=== PATIENT | female | born 1980 | race Caucasian/White ===

== ENCOUNTER 2024-07-21 06:52 | Emergency (ER) | payer BC, SELFPAY ==
[2024-07-21 06:56] VITALS: BP 139/85
--- NOTE | 2024-07-21 07:54 | ED.GENMED ---
History of Present Illness
General
Chief Complaint: Head Injury
Source: patient
Exam Limitations: none
Time Seen by Provider: 07/21/24 07:28
Nursing documentation reviewed up to this point in time: agreed with
History of Present Illness
History of Present Illness:
Patient is a 43-year-old female who reports around 6 AM she was bent over and stood up hitting the back of her head on a TV sustaining laceration. She denies loss of consciousness. She does have a little headache and her vision with distance feels
a little off however she denies any vomiting. She is on blood thinners. She drove her self to the hospital. She is unsure of last tetanus.
Past History
Past History
ED Past Medical History: Hypothyroidism; Negative Asthma, HTN, Hypercholesterolemia or NIDDM
ED Past Surgical History: Appendectomy and Cholecystectomy
Social History
Tobacco: Non-smoker
Alcohol: None
Personal: (Same sex)
Living: with family
Review of Systems
Review of Systems
Allergies reviewed?: Yes
All Other Systems: ROS reviewed and negative except as documented in HPI and ROS
Constitutional: Reports no symptoms; Denies fever, fatigue or chills
Respiratory: Reports no symptoms
Cardiac: Reports no symptoms
ABD/GI: Denies nausea or vomiting
Musculoskeletal: Reports no symptoms
Skin: Reports other (scalp laceration)
Neurological: Reports headache and other ( no loc)
Psychiatric: Reports no symptoms
Phy Exam
General Physical Exam
General Presentation: no apparent distress
General age: appears stated age
General Skin: warm and dry
General Habitus: normal
General Mental: alert
General Hydration: appears well hydrated
Neurological Exam
Neurological Exam: alert
Musculoskeletal Exam
Musculoskeletal Exam: full ROM and other (No bony cervical spine midline tenderness, small abrasion/mild hematoma to posterior head)
Skin Exam
Skin Exam: normal color and warm/dry
Psychiatric Exam
Psychiatric Exam: normal mood/affect
Course
Orders/Labs/Results
Orders:
Orders
07/21/24 07:55
Tetanus/Diphth/Acelpertussis [Adacel] 0.5 ml IM .ONCE ONE
Vital Signs
Initial and Last Documented VS:
Initial Vital Signs
Temp Pulse Resp BP Pulse Ox
98 F 95 16 139/85 100
07/21/24 06:56 07/21/24 06:56 07/21/24 06:56 07/21/24 06:56 07/21/24 06:56
Last Documented Vital Signs
Temp Pulse Resp BP Pulse Ox
98 F 95 16 139/85 100
07/21/24 06:56 07/21/24 06:56 07/21/24 06:56 07/21/24 06:56 07/21/24 06:56
MDM/Problems Addressed
Differential Diagnosis Includes:
Not limited to head injury, abrasion, concussion
MDM/Problems Addressed:
Patient is a 43-year-old female who bent over and when she stood up hit the back of her head on a TV. She complains of laceration however on exam there is a small abrasion mild swelling to the area. This does not need repair. She complains of
mild headache her vision feels a little off however she is in no acute distress and looks well. Head injury possible mild concussion however with mechanism normal neurologic exam and well appearance of patient will hold off on any imaging. I had a
discussion about this with patient and she is agreeable and feels comfortable without imaging. She was reviewed on head injury instructions and when to return to the ER for. She has no acute distress and stable for discharge home. She was updated
on tetanus.
*Critical Care Note
Total Time (30-74mins, 75-104mins- exclusive of procedures): Not Applicable
ED Attending Note
-
Portions of this chart may have been created with voice recognition software.� Occasional wrong word or��sound alike� substitutions may have occurred due to the inherent limitations of voice recognition software.
Discharge Plan
Departure
Patient Disposition: Home (Routine Discharge)
Date of Disposition: 07/21/24
Time of Disposition: 09:03
Patient with high blood pressure during this ER visit?: Yes
Condition: Fair
Covid-19: Not Applicable
Discharge Problem:
Head injury, Scalp abrasion
Instructions: Head Injury in Adults (DC), Abrasions ED
Prescriptions:
No Action
levothyroxine 25 MCG tablet
25 mcg PO DAILY
Referrals:
Phong Guerin DO [Family Provider] -
Activity Restrictions/Additional Instructions:
Ice affected area for the next 24 hours 20 days at a time several times a day. Wash abrasion with soap and water pat dry and apply small layer of antibiotic to the area.
You may take Tylenol or ibuprofen for pain. Return if any worsening of symptoms of worsening headache nausea vomiting difficulty walking balance issues or any further concerns.
Interventions
Interventions:
*Risk Screen - Suicide Last Done: 07/21/24 06:56
*General Assessment Last Done: 07/21/24 06:56
*Neglect/Abuse Screening Last Done: 07/21/24 06:56
ED- Fall Risk Assessment Last Done: 07/21/24 07:17
*ED COVID-19 Vaccine History Last Done: 07/21/24 07:17
ED- Neurological Assessment Last Done: 07/21/24 07:17
ED-Skin Assessment Last Done: 07/21/24 07:17
Discharge Date and Time
Print Language: ICELANDIC
[2024-07-21] MEDS: ADACEL 0.5 ML IM (08:09)
[2024-07-21 08:40] VITALS: BP 132/78
== END 2024-07-21 09:40 | disposition home or self-care (01) ==
LOC: EMR 06:52
PROVIDERS: EMERGENCY PHYSICIAN Student in an Organized Health Care Education/Training Program; FAMILY PHYSICIAN Family Medicine
DX: S09.90XA Unspecified injury of head, initial encounter (principal); S00.01XA Abrasion of scalp, initial encounter; W22.8XXA Striking against or struck by other objects, initial encounter; E03.9 Hypothyroidism, unspecified; Z79.01 Long term (current) use of anticoagulants; Z90.49 Acquired absence of other specified parts of digestive tract
CPT/HCPCS: 99282; 90471; 90715